=== PATIENT | female | born 1995 | race Caucasian/White ===

== ENCOUNTER 2016-12-04 14:30 | Emergency (ER) | payer BC ==
[~2016-12-04] VITALS: Ht 160 cm; Wt 66.0 kg
[~2016-12-04 14:30] MED LIST: CLON.5 PO; CLON0.5T PO; LEXA20TA PO; TRAZ50TA4 PO; Z.0.BCPILL PO
[2016-12-04 14:33] VITALS: BP 119/77; PULSE 75; RESP 18; TEMP 98.1; O2SAT 100
--- NOTE | 2016-12-04 14:40 | PD ---
Physical Exam Time Seen by Provider: 14:38 Narrative 21yo F c/o diarrhea, vomiting, and abd pain since Thursday. Came back from trip to [place] Thursday. Sathya fever. LMP 3 weeks ago. Reports contraception use. Denies fever. Patient seen in triage. Awaiting bed placement. VS reviewed. Data Data Last Documented VS Vital Signs Date Time Temp Pulse Resp B/P Pulse Ox O2 Delivery O2 Flow Rate FiO2 12/04/16 14:33 98.1 75 18 119/77 100 MDM Supervised Visit with GIAN: Jing Moreno December 04, 2016 14:40
[2016-12-04] MEDS ORDERED: CLON1TAB PO (15:12)
[2016-12-04] MEDS ORDERED: FIORINAL2 PO (15:12)
[2016-12-04] MEDS ORDERED: ZANT300T PO (15:12)
[2016-12-04] MEDS ORDERED: LEXA20TA PO (15:12)
[2016-12-04] MEDS ORDERED: [UNRECOGNIZED DRUG - CODE] PO (15:12)
[2016-12-04] MEDS ORDERED: CLON0.5T PO (15:12)
[2016-12-04] MEDS ORDERED: SODIUM CHLOR 0.9% 1000 ML INJ 1,000 ML IV SCH (15:24)
[2016-12-04] MEDS ORDERED: ONDANSETRON HCL 4 MG/2 ML VIAL IVP ONE (15:30)
[2016-12-04] MEDS ORDERED: SODIUM CHLORIDE 0.9% FLUSH 10 ML FLUSH IV FLUSH PRN (15:30)
--- NOTE | 2016-12-04 15:31 | PD ---
HPI Chief Complaint: Abdominal Pain Time Seen by Provider: 15:26 Travel History International Travel<30 days: Yes Contact w/Intl Traveler<30days: Yes Name of Country Traveled to: [place] Traveled to known affect area: No History of Present Illness HPI Patient comes in complaining of vomiting, diarrhea, abdominal pain ongoing for 4 days. Patient states she does return from [place] 6 days ago. Denies any other known new allergen exposures. Denies any fevers, shortness of breath, chest pain, loss or change in bladder, vaginal discharge, or . Patient states she's been using [id number] medication that this helped with the diarrhea, but not with the abdominal pain or vomiting. Patient denies any blood in vomit or diarrhea. Patient reports the vomiting is nonbilious. Patient reports she has not been able to keep anything down secondary to vomiting. Patient describes pain as a gripping aching pain throughout her abdomen. PFSH Past Medical History Anemia: Yes Asthma: Yes Anxiety: No Depression: Yes Cancer: No Cardiovascular Problems: No Diabetes: No Diminished Hearing: No Endocrine: No Gastrointestinal Disorders: Yes (recurrent diarrhea) Genitourinary: No Headaches: No Hepatitis: No Immune Disorder: No Implanted Vascular Access Dvce: No Medical other: No Musculoskeletal: No Neurologic: Yes Psychiatric: Yes ([facility] 07/02, [facility] 10/01, and [place] unknown when) Reproductive: Yes (ENDOMETRIOSIS) Respiratory: No Immunizations Current: Yes Pneumonia: Yes Seizures: No Thyroid Disease: No ?: Not LMP: 3 WEEKS AGO : 0 Past Surgical History AICD: No Gynecologic Surgery: Yes (LAPAROSCOPY FOR ENDOMETRIOSIS) Joint Replacement: No Pacemaker: No Other Surgery: Yes (LAP FOR ENDOMETROSIS) Social History Alcohol Use: No Tobacco Use: No Substance Use: No Allergies-Medications (Allergen,Severity, Reaction): Coded Allergies: Effexor (Verified Allergy, Severe, mental break down, 04/10/15) per mom Haloperidol (Verified Allergy, Severe, 10/24/14) Reported Meds & Prescriptions Reported Meds & Active Scripts Active Bentyl (Dicyclomine HCl) 20 Mg Tab 20 Mg PO TID PRN Zofran Odt (Ondansetron Odt) 4 Mg Tab 4 Mg SL Q6HR PRN Reported Fiorinal (Butalbital/Aspirin/Caffeine) 50-325-40 Mg Cap 1 Cap PO Q4H PRN Do not exceed 6 capsules/day. Zantac (Ranitidine HCl) 300 Mg Tab 300 Mg PO DAILY Loryna (Drospirenone-Ethinyl Estradiol) 3-0.02 Mg Tab 1 Tab PO DAILY Lexapro (Escitalopram Oxalate) 20 Mg Tab 20 Mg PO DAILY Clonazepam 0.5 Mg Tab 0.5 Mg PO BID Clonazepam 1 Mg Tab 1 Mg PO BID Review of Systems Except as stated in HPI: all other systems reviewed are Neg Physical Exam Narrative GENERAL: Well-developed, well nourished, in no acute distress, and non-ill appearing. SKIN: Focused skin assessment warm and dry. HEAD: Atraumatic. Normocephalic. EYES: Pupils equal and round. EOMI. No scleral icterus. No injection or drainage. ENT: No nasal bleeding or discharge. Mucous membranes pink and moist. NECK: Trachea midline. No JVD. Supple. No nuclear rigidity. CARDIOVASCULAR: Regular rate and rhythm. No murmur appreciated. RESPIRATORY: No accessory muscle use. No respiratory distress. Clear to auscultation. Breath sounds equal bilaterally. GASTROINTESTINAL: Abdomen soft, non-tender, nondistended. Hepatic and splenic margins not palpable. Normal bowel sounds 4. No pulsatile mass. MUSCULOSKELETAL: No obvious deformities. No clubbing. No cyanosis. No edema. Full range of motion. NEUROLOGICAL: Awake and alert. No obvious cranial nerve deficits. Motor grossly within normal limits. Normal speech. PSYCHIATRIC: Appropriate mood and affect; insight and judgment normal. Data Data Last Documented VS Vital Signs Date Time Temp Pulse Resp B/P Pulse Ox O2 Delivery O2 Flow Rate FiO2 12/04/16 14:33 98.1 75 18 119/77 100 Orders Complete Blood Count With Diff (12/04/16 15:24) Comprehensive Metabolic Panel (12/04/16 15:24) Lipase (12/04/16 15:24) Prothrombin Time / Inr (Pt) (12/04/16 15:24) Act Partial Throm Time (Ptt) (12/04/16 15:24) Urinalysis - C+S If Indicated (12/04/16 15:24) Iv Access Insert/Monitor (12/04/16 15:24) Ecg Monitoring (12/04/16 15:24) Oximetry (12/04/16 15:24) Ondansetron Inj (Zofran Inj) (12/04/16 15:30) Sodium Chlor 0.9% 1000 Ml Inj (Ns 1000 M (12/04/16 15:24) Sodium Chloride 0.9% Flush (Ns Flush) (12/04/16 15:30) Chest, Single Ap (12/04/16 15:24) Ed Urine Pregnancytest Poc (12/04/16 15:24) Labs Laboratory Tests Test 12/04/16 12/04/16 15:20 15:35 Urine Color LIGHT-YELLOW Urine Turbidity CLEAR Urine pH 6.0 Urine Specific [place] 1.007 Urine Protein NEG mg/dL Urine Glucose (UA) NEG mg/dL Urine Ketones NEG mg/dL Urine Occult Blood NEG Urine Nitrite NEG Urine Bilirubin NEG Urine Urobilinogen LESS THAN 2.0 MG/DL Urine Leukocyte Esterase NEG Urine RBC LESS THAN 1 /hpf Urine WBC LESS THAN 1 /hpf Urine Squamous Epithelial 1 /hpf Cells Urine Bacteria OCC /hpf Microscopic Urinalysis Comment CULT NOT INDICATED White Blood Count 3.7 TH/MM3 Red Blood Count 3.87 MIL/MM3 Hemoglobin 12.1 GM/DL Hematocrit 37.2 % Mean Corpuscular Volume 96.1 FL Mean Corpuscular Hemoglobin 31.3 PG Mean Corpuscular Hemoglobin 32.6 % Concent Red Cell Distribution Width 14.2 % Platelet Count 243 TH/MM3 Mean Platelet Volume 7.3 FL Neutrophils (%) (Auto) 61.0 % Lymphocytes (%) (Auto) 29.8 % Monocytes (%) (Auto) 4.5 % Eosinophils (%) (Auto) 4.0 % Basophils (%) (Auto) 0.7 % Neutrophils # (Auto) 2.3 TH/MM3 Lymphocytes # (Auto) 1.1 TH/MM3 Monocytes # (Auto) 0.2 TH/MM3 Eosinophils # (Auto) 0.1 TH/MM3 Basophils # (Auto) 0.0 TH/MM3 CBC Comment DIFF FINAL Differential Comment Prothrombin Time 10.2 SEC Prothromb Time International 0.9 RATIO Ratio Activated Partial 30.3 SEC Thromboplast Time Sodium Level 138 MEQ/L Potassium Level 3.6 MEQ/L Chloride Level 103 MEQ/L Carbon Dioxide Level 26.0 MEQ/L Anion Gap 9 MEQ/L Blood Urea Nitrogen 7 MG/DL Creatinine 0.80 MG/DL Estimat Glomerular Filtration 91 ML/MIN Rate Random Glucose 68 MG/DL Calcium Level 9.4 MG/DL Total Bilirubin 0.1 MG/DL Aspartate Amino Transf 23 U/L (AST/SGOT) Alanine Aminotransferase 25 U/L (ALT/SGPT) Alkaline Phosphatase 75 U/L Total Protein 7.6 GM/DL Albumin 3.4 GM/DL Lipase 135 U/L MDM Medical Decision Making Medical Screen Exam Complete: Yes Emergency Medical Condition: Yes Differential Diagnosis Gastroenteritis, electrolyte abnormality, UTI, dehydration, pancreatitis, aspiration pneumonia, other Narrative Course Patient was asked to provide a stool sample if she has any bowel movements while in the emergency department. 1633 patient reassessed reports improvement of symptoms. Has not had a bowel movement while in the ER. Discussed all findings and plan of care with patient , who was agreeable and comfortable with discharge. The patient presented with abdominal pain suspicious for gastritis. There was no significant history of diarrhea and no fever. The patient appeared comfortable, well hydrated and the abdominal exam was unremarkable and minimal to nontender to me. Laboratory evaluation revealed no significant abnormality. Chest x-ray showed no abnormalities. There was no evidence of an acute, surgical abdomen at this time. There was no clinical evidence to support cholecystitis/cholelithiasis, pancreatitis, perforation of gastric ulcer, colitis, diverticulitis, bacterial peritonitis, obstruction, volvulus, early appendicitis, or hernial incarceration or strangulation nor significant GIB at this time. There was no evidence to support vascular pathology such as AAA, mesenteric ischemia. There was also no clinical evidence by history, exam or risk factors to suggest atypical presentation of cardiac disease such as ACS, AMI or atypical angina. No evidence to suggest genitourinary etiology as well. During the course of the ED visit, the patient noted improvement. Clinical picture was discussed with the patient, as well as plan of care. The patient was instructed to follow up with their physician. Abdominal pain warnings were discussed with the patient. The patient is to return if worsens, pain worsens or changes, develop fever, inability to tolerate fluids with or without vomiting , unable to establish follow up or as needed. The patient agrees with plan. Patient in no obvious distress upon re-evaluation. All pertinent laboratory/ Radiology result(s) discussed with patient. Discussed patient with Dr. Crump prior to discharge, who is in agreement with plan of care and disposition. Patient was asked if they wanted to speak to my attending, which the patient did not wish to do at this time. Any questions/concerns in reference to patient diagnosis/condition discussed and clarified prior to patient's discharge. Reinforced sheer importance of close follow up with patient's primary physician or primary care clinic. Instructed patient to return to ED immediately, if symptoms return/worsen. Pt showed understanding of above instructions. Further instructions and recommendations were detailed in discharge paperwork. Pt ambulated without difficulty out of ED at discharge. Diagnosis Primary Impression: Abdominal pain Qualified Code: R10.9 - Abdominal pain, unspecified location Additional Impressions: Nausea & vomiting Qualified Code: R11.2 - Non-intractable vomiting with nausea, unspecified vomiting type Diarrhea Qualified Code: R19.7 - Diarrhea, unspecified type Patient Instructions: Abdominal Pain (ED), Acute Diarrhea (GEN), Acute Nausea and Vomiting (ED), Gastroenteritis (ED), General Instructions Additional Instructions: Follow-up with your primary care physician in one to 4 days for reevaluation. Take all medication as prescribed. Drink plenty of non-caffeinated and nonalcoholic fluids. Return to the emergency department if symptoms get worse. Med/Other Pt SpecificInfo: Prescription(s) given Scripts Dicyclomine (Bentyl)20 Mg Tab20 Mg PO TID PRN (Bowel Management) #7 TAB Ref 0 Prov:Jose Crump MD 12/04/16 Ondansetron Odt (Zofran Odt)4 Mg Tab4 Mg SL Q6HR PRN (Nausea/Vomiting) #12 TAB Ref 0 Prov:Jose Crump MD 12/04/16 Disposition: 01 DISCHARGE HOME Condition: Stable Dionisio Nicholson December 04, 2016 15:31
[2016-12-04 16:04] LABS: BACTERIA, URINE OCC /hpf; BLOOD, URINE NEG (NEG); GLUCOSE,URINE NEG (NEG); KETONE, URINE NEG (NEG); NITRITE,URINE NEG (NEG); SQUAMOUS EPITHELIAL CELL URINE 1 /hpf (0-5); URINE COLOR LIGHT-YELLOW (YELLW/STRAW)
[2016-12-04 16:04] LABS: AUTOMATED NEUTROPHIL # 2.3 TH/MM3 (1.8-7.7); BASOPHIL % 0.7 % (0.0-2.0); EOSINOPHIL # 0.1 TH/MM3 (0-0.4); HEMATOCRIT 37.2 % (35.0-46.0); HEMO FLAGS DIFF FINAL; LYMPH % 29.8 % (9.0-44.0); LYMPHOCYTE # 1.1 TH/MM3 (1.0-4.8); MEAN CELL VOLUME 96.1 FL (80.0-100.0); MEAN CORPUSCULAR HEMOGLOBIN 31.3 PG (27.0-34.0); MEAN CORPUSCULAR HGB CONC 32.6 % (32.0-36.0); MONO % 4.5 % (0.0-8.0); PLATELET COUNT 243 TH/MM3 (150-450); RED BLOOD COUNT 3.87 MIL/MM3 (4.00-5.30); RED CELL DISTRIBUTION WIDTH 14.2 % (11.6-17.2); WHITE BLOOD COUNT 3.7 TH/MM3 (4.0-11.0)
[2016-12-04 16:05] LABS: COMMENT (UR) CULT NOT INDICATED; CULTURE IF INDICATED CULT NOT INDICATED
--- NOTE | 2016-12-04 16:05 | RADRPT ---
EXAM DATE/TIME: 12/04/2016 15:33 [facility] COMPARISON: No previous studies available for comparison. INDICATIONS : Chest pain since Thursday. MEDICAL HISTORY : None. SURGICAL HISTORY : None. ENCOUNTER: Initial ACUITY: 3 days PAIN SCORE: 5/10 LOCATION: Bilateral chest FINDINGS: A single view of the chest demonstrates the lungs to be symmetrically aerated without evidence of mas s, infiltrate or effusion. The cardiomediastinal contours are unremarkable. Osseous structures are intact. CONCLUSION: Normal examination. Tre Zuniga MD on December 04, 2016 at 16:04 Board Certified Radiologist. This report was verified electronically.
[2016-12-04 16:15] LABS: APTT (PATIENT) 30.3 SEC (24.3-30.1); INTERNATIONAL NORMALIZED RATIO 0.9 RATIO; PROTHROMBIN TIME - PATIENT 10.2 SEC (9.8-11.6)
[2016-12-04 16:23] LABS: ALT (GPT) 25 U/L (9-42); ANION GAP 9 MEQ/L (5-15); BLOOD UREA NITROGEN 7 MG/DL (7-18); CHLORIDE 103 MEQ/L (98-107); GLOMERULAR FILTRATION RATE 91 ML/MIN (>89); POTASSIUM 3.6 MEQ/L (3.5-5.1); SODIUM (NA) 138 MEQ/L (136-145)
[2016-12-04 16:27] LABS: ALKALINE PHOSPHATASE 75 U/L (45-117); AST (GOT) 23 U/L (16-38); TOTAL BILIRUBIN ADULT 0.1 MG/DL (0.2-1.0)
[2016-12-04] MEDS ORDERED: BENT20TA PO (16:43)
[2016-12-04] MEDS ORDERED: ZOFR4TAB3 SL (16:43)
== END 2016-12-04 17:05 | disposition home or self-care (01) ==
LOC: NEPD 14:30
DX: R10.9 Unspecified abdominal pain (principal); R11.2 Nausea with vomiting, unspecified; R19.7 Diarrhea, unspecified; Z86.2 Personal history of diseases of the blood and blood-forming organs and certain disorders involving the immune mechanism; Z87.09 Personal history of other diseases of the respiratory system; Z86.59 Personal history of other mental and behavioral disorders; Z87.42 Personal history of other diseases of the female genital tract
CPT/HCPCS: 71010; 80053; 81001; 83690; 84703; 85025; 85610; 85730; 96374; 99284; J2405; J7030

== ENCOUNTER → 2017-11-03 | Day surgery (SDC) | payer OTHER ==
[~2017-11-03] VITALS: Ht 160 cm; Wt 75.9 kg
[~2017-11-03] MED LIST changes: +ACETAMINOPHEN 1000 MG/100 ML 100 ML IV ONE; +BUPIVACAINE/EPINEPHRINE 0.25% 50 ML VIAL ONE; +BUPR150T3 PO; +CHLORHEXIDINE GLUCONATE 2 % 1 PACK (2 CLOTHS) TOPICAL PRN; -CLON.5 PO; -CLON0.5T PO; +CLON2TAB PO; +DEXAMETHASONE SOD PHOS 4 MG/ML VIAL IV ONE; +DO NOT ADM ANY ANTICOAGULANT DRUGS PRN; +ETHI1TAB3 PO; +GLYCOPYRROLATE 1 MG/5 ML SYRINGE IV PUSH ONE; +KETOROLAC TROMETHAMINE 30 MG/ML (IVP) VIAL IV PUSH ONE; +LACTATED RINGER'S 1000 ML IV PRN; -LEXA20TA PO; +LIDOCAINE HCL 1% PF 5 ML SYRINGE OTHER ONE; +METOPROLOL TARTRATE 25 MG TAB PO PRN; +MIDAZOLAM HCL 2 MG/2 ML VIAL ONE; +MORPHINE SULFATE 2 MG/ML SYRINGE ONE; +NEOSTIGMINE 5 MG/5 ML SYRINGE IV PUSH ONE; +ONDANSETRON HCL 4 MG/2 ML VIAL IV ONE; +PERC5TAB12 PO; +POVIDONE IODINE 5% (ANTISEPSIS KIT) 4 APPLICATIONS EACH NARE PRN; +PRAZ2CAP PO; +PROPOFOL 200 MG/20 ML AMP IV ONE; +ROCURONIUM INJ 50 MG/5 ML SYRINGE IV PUSH ONE; +SODIUM CHLORID 0.9% 500 ML IV PRN; -TRAZ50TA4 PO; +VORT1TAB2 PO; -Z.0.BCPILL PO; +ZANT150T2 PO
[2017-11-03 07:49] LABS: AUTOMATED NEUTROPHIL # 2.8 TH/MM3 (1.8-7.7); BASOPHIL % 0.9 % (0.0-2.0); EOSINOPHIL # 0.1 TH/MM3 (0-0.4); EOSINOPHIL % 2.4 % (0.0-4.0); HEMOGLOBIN 12.2 GM/DL (11.6-15.3); LYMPH % 23.6 % (9.0-44.0); LYMPHOCYTE # 0.9 TH/MM3 (1.0-4.8); MEAN CELL VOLUME 94.4 FL (80.0-100.0); MEAN CORPUSCULAR HEMOGLOBIN 32.9 PG (27.0-34.0); MEAN CORPUSCULAR HGB CONC 34.9 % (32.0-36.0); MONO % 1.8 % (0.0-8.0); MONOCYTE # 0.1 TH/MM3 (0-0.9); NEUT % 71.3 % (16.0-70.0); PLATELET COUNT 255 TH/MM3 (150-450); RED BLOOD COUNT 3.71 MIL/MM3 (4.00-5.30); RED CELL DISTRIBUTION WIDTH 13.2 % (11.6-17.2); WHITE BLOOD COUNT 3.9 TH/MM3 (4.0-11.0)
--- NOTE | 2017-11-03 10:23 | MP ---
cc: Jm Randall MD DATE OF OPERATION: 11/03/2017 DATE OF PROCEDURE: 11/03/2017 PROCEDURE PERFORMED: Diagnostic laparoscopy. PREOPERATIVE DIAGNOSIS: Pelvic pain. POSTOPERATIVE DIAGNOSES: Pelvic pain. SURGEON: Jm Randall MD ANALYST SALES: [employer] Nicole COMPLICATIONS: None. FINDINGS: Normal female pelvic anatomy, slight pelvic engorgement. ANESTHESIA: General, Dr. Martin Rodriguez. PROCEDURE IN DETAIL: After informed consent, the patient taken to the operating room where she was placed under general anesthesia, placed in a supine position with legs in [place] stirrups, and abdomen, perineum, and vagina were prepped and draped in normal sterile fashion. After adequate anesthesia was assured and a timeout was taken, a Bustamante catheter was placed to gravity. A speculum was placed into vagina. The cervix grasped with a single-tooth tenaculum. [place] uterine manipulator was placed in the cervix without difficulty. Survey of the upper and lower abdomen revealed no abnormality. The patient had some pelvic engorgement, but otherwise unremarkable laparoscopy. She had normal ovaries bilaterally, normal fallopian tubes, normal uterus, normal anterior and posterior cul-de-sacs. The upper abdomen was normal. At the end of the procedure, all instruments were removed along with CO2. There had been a 5 mm trocar placed infraumbilically with 0.25% Marcaine with epinephrine and a 5 mm trocar was placed suprapubically also injected with 0.25% Marcaine with epinephrine. The patient tolerated the procedure well. She was taken to the recovery room in stable condition. Lap and instrument counts were reported as correct. There were no specimens sent. Jm Randall MD JWM/KD , 10:03 AM , 10:22 AM
--- NOTE | 2017-11-03 10:43 | HHI.DCPOC ---
Discharge Care Plan Diagnosis: (1) Abdominal pain Report Symptoms to Your Doctor -Temperature above 100.5 degrees -Redness, of incision or excessive or foul smelling drainage -Unusual pain or calf pain -Increased vaginal bleeding -Painful or difficulty urinating -Feelings of extreme sadness or anxiety after 2 weeks Goals to Promote Your Health * To prevent worsening of your condition and complications * To maintain your health at the optimal level Directions to Meet Your Goals Take your medications as prescribed Follow your dietary instruction Follow activity as directed Ensure plenty of rest for recovery Drink fluids for hydration Keep your appointments as scheduled Take your immunizations and boosters as scheduled If your symptoms worsen call your PCP, if no PCP go to Urgent Care Center or Emergency Room Smoking is Dangerous to Your Health. Avoid second hand smoke Call the 24-hour crisis hotline for domestic abuse at Jm Randall MD Nov 03, 2017 10:43
[2017-11-03 11:35] VITALS: BP 112/69; PULSE 60; RESP 16; TEMP 98.1; O2SAT 99
== END | disposition home or self-care (01) ==
LOC: HSDC 06:45
PROVIDERS: ATTEND Obstetrics & Gynecology
DX: R10.2 Pelvic and perineal pain (principal); N80.3 Endometriosis of pelvic peritoneum; Z01.818 Encounter for other preprocedural examination
CPT/HCPCS: 00840; 49320; 84702; 85025; J0131; J1100; J1885; J2250; J2270; J2405; J2710; J3010; J7120